=== PATIENT | male | born 1980 | race Caucasian/White ===

== ENCOUNTER 2017-12-06 00:27 | Observation (INO) | payer OTHER ==
[2017-12-06] MEDS ORDERED: Aspirin 81 MG Tab.Chew PO ONE (00:37)
[2017-12-06] MEDS ORDERED: Sodium Chloride 0.9% 1,000 ML IV ONE (00:37)
--- NOTE | 2017-12-06 00:49 | EDM.PDOC ---
ED HPI GENERAL MEDICAL PROBLEM - General Chief Complaint: Respiratory Problem Stated Complaint: SHORTNESS OF BREATH Time Seen by Provider: 12/06/17 00:49 Source of Information: Reports: Patient - History of Present Illness INITIAL COMMENTS - FREE TEXT/NARRATIVE: HISTORY AND PHYSICAL: History of present illness: [] Review of systems: As per history of present illness and below otherwise all systems reviewed and negative. Past medical history: As per history of present illness and as reviewed below otherwise noncontributory. Surgical history: As per history of present illness and as reviewed below otherwise noncontributory. Social history: No reported history of drug or alcohol abuse. Family history: As per history of present illness and as reviewed below otherwise noncontributory. Physical exam: HEENT: Atraumatic, normocephalic, pupils reactive, negative for conjunctival pallor or scleral icterus, mucous membranes moist, throat clear, neck supple, nontender, trachea midline. Lungs: Clear to auscultation, breath sounds equal bilaterally, chest nontender. Heart: S1S2, regular, negative for clicks, rubs, or JVD. Abdomen: Soft, nondistended, nontender. Negative for masses or hepatosplenomegaly. Negative for costovertebral tenderness. Pelvis: Stable nontender. Genitourinary: Deferred. Rectal: Deferred. Extremities: Atraumatic, negative for cords or calf pain. Neurovascular unremarkable. Neuro: Awake, alert, oriented. Cranial nerves II through XII unremarkable. Cerebellum unremarkable. Motor and sensory unremarkable throughout. Exam nonfocal. Diagnostics: [] Therapeutics: [] Impression: [] Definitive disposition and diagnosis as appropriate pending reevaluation and review of above. - Related Data Allergies Allergy/AdvReac Type Severity Reaction Status Date / Time No Known Allergies Allergy Verified 12/06/17 00:45 Home Meds: Home Meds . [No Known Home Meds] 12/06/17 [History] Course - Vital Signs Last Recorded V/S: Last Vital Signs Temp 98.3 F 12/06/17 00:27 Pulse 93 12/06/17 00:27 Resp 24 H 12/06/17 00:27 BP 150/112 H 12/06/17 00:27 Pulse Ox 97 12/06/17 00:27 - Orders/Labs/Meds Orders: Active Orders 24 hr Category Date Time Status EKG Documentation Completion [RC] STAT Care 12/06/17 00:38 Active Chest 1V Frontal [CR] Stat Exams 12/06/17 00:38 Ordered CBC WITH AUTO DIFF [HEME] Stat Lab 12/06/17 00:37 Ordered COMPREHENSIVE METABOLIC PN,CMP [CHEM] Stat Lab 12/06/17 00:38 Ordered INR,PT,PROTHROMBIN TIME [COAG] Stat Lab 12/06/17 00:38 Ordered LIPASE [CHEM] Stat Lab 12/06/17 00:38 Ordered TROPONIN I [CHEM] Stat Lab 12/06/17 00:38 Ordered UA W/MICROSCOPIC [URIN] Stat Lab 12/06/17 00:38 Ordered Nitroglycerin [Nitrostat] Med 12/06/17 00:37 Active 0.4 mg SL Q5M PRN Sodium Chloride 0.9% [Normal Saline] 1,000 ml Med 12/06/17 00:37 Active IV STAT Medication Orders Sodium Chloride (Normal Saline) 1,000 mls @ 999 mls/hr IV STAT ONE Stop: 12/06/17 01:37 Last Admin: 12/06/17 00:48 Dose: 999 mls/hr Nitroglycerin (Nitrostat) 0.4 mg SL Q5M PRN PRN Reason: Chest Pain Meds: Medications Generic Name Dose Route Start Last Admin Trade Name Freq PRN Reason Stop Dose Admin Sodium Chloride 1,000 mls @ 999 mls/hr 12/06/17 00:37 12/06/17 00:48 Normal Saline IV 12/06/17 01:37 999 mls/hr STAT ONE Administration Nitroglycerin 0.4 mg 12/06/17 00:37 Nitrostat SL Q5M PRN Chest Pain Discontinued Medications Generic Name Dose Route Start Last Admin Trade Name Freq PRN Reason Stop Dose Admin Aspirin 324 mg 12/06/17 00:37 12/06/17 00:48 Aspirin PO 12/06/17 00:38 324 mg ONETIME ONE Administration Departure - Discharge Information - My Orders Last 24 Hours: My Active Orders 12/06/17 00:37 CBC WITH AUTO DIFF [HEME] Stat Nitroglycerin [Nitrostat] 0.4 mg SL Q5M PRN Sodium Chloride 0.9% [Normal Saline] 1,000 ml IV STAT 12/06/17 00:38 EKG Documentation Completion [RC] STAT Chest 1V Frontal [CR] Stat COMPREHENSIVE METABOLIC PN,CMP [CHEM] Stat INR,PT,PROTHROMBIN TIME [COAG] Stat LIPASE [CHEM] Stat TROPONIN I [CHEM] Stat UA W/MICROSCOPIC [URIN] Stat - Assessment/Plan Last 24 Hours: My Active Orders 12/06/17 00:37 CBC WITH AUTO DIFF [HEME] Stat Nitroglycerin [Nitrostat] 0.4 mg SL Q5M PRN Sodium Chloride 0.9% [Normal Saline] 1,000 ml IV STAT 12/06/17 00:38 EKG Documentation Completion [RC] STAT Chest 1V Frontal [CR] Stat COMPREHENSIVE METABOLIC PN,CMP [CHEM] Stat INR,PT,PROTHROMBIN TIME [COAG] Stat LIPASE [CHEM] Stat TROPONIN I [CHEM] Stat UA W/MICROSCOPIC [URIN] Stat
[2017-12-06] MEDS: Nitroglycerin 0.4 MG Tab.SL SL PRN ×2 (00:50→00:56)
[2017-12-06 01:41] LABS: CHLORIDE,CL 104 mmol/L (98-107); SODIUM,NA 140 mmol/L (136-148)
[2017-12-06] MEDS ORDERED: Sodium Chloride 0.9% 1,000 ML IV SCH (02:45)
[2017-12-06] MEDS ORDERED: Morphine 4 MG/ML Syringe IVPUSH PRN (05:18)
[2017-12-06] MEDS ORDERED: Enoxaparin 40 MG/0.4 ML Syringe SUBCUT SCH (05:30)
--- NOTE | 2017-12-06 12:32 | PCM.HP ---
H&P History of Present Illness - General Date of Service: 12/06/17 Admit Problem/Dx: Admission Diagnosis/Problem Admission Diagnosis/Problem Chest pain Patient 36 y old man presented to hospital after he suddenly start having SOB and sensation of impending doom, chest discomfort described as tightness in the middle of the chest mild to moderate intensity that lasted for 15-20 minutes and promted him to come to ER . Patient was drinking beer at home previously and was fired from work where he was working for the past 5 yeas as he tested positive for methamphetamines and this caused him a lot of stress. No irradiation of pain Source of Information: Patient - History of Present Illness Onset of Symptoms: Reports: Today Duration of Symptoms: Reports: Hour(s): Location: Reports: Chest - Related Data Allergies/Adverse Reactions: Allergies Allergy/AdvReac Type Severity Reaction Status Date / Time No Known Allergies Allergy Verified 12/06/17 00:45 Home Medications: Home Meds . [No Known Home Meds] 12/06/17 [History] Past Medical History - Past Health History Medical/Surgical History: Denies Medical/Surgical History Psychiatric History: Reports: Addiction - Infectious Disease History Infectious Disease History: Reports: Chicken Pox Social & Family History - Family History Family Medical History: Noncontributory - Tobacco Use Smoking Status *Q: Never Smoker Second Hand Smoke Exposure: No - Caffeine Use Caffeine Use: Reports: Coffee Other Caffeine Use: 2 cups daily - Alcohol Use Days Per Week of Alcohol Use: 7 Number of Drinks Per Day: 1 Total Drinks Per Week: 7 Date of Last Drink: 12/05/17 Time of Last Drink: 20:00 - Recreational Drug Use Recreational Drug Use: Yes Drug Use in Last 12 Months: Yes Recreational Drug Type: Reports: Heroin, Marijuana/Hashish, Methamphetamine Recreational Drug Use Frequency: Weekly H&P Review of Systems - Review of Systems: Review Of Systems: See Below General: Reports: No Symptoms HEENT: Reports: No Symptoms Pulmonary: Reports: Shortness of Breath Cardiovascular: Reports: Chest Pain Gastrointestinal: Reports: No Symptoms Genitourinary: Reports: No Symptoms Musculoskeletal: Reports: No Symptoms Skin: Reports: No Symptoms Psychiatric: Reports: No Symptoms Neurological: Reports: No Symptoms Hematologic/Lymphatic: Reports: No Symptoms Exam - Exam Exam: See Below - Vital Signs Vital Signs: Last Vital Signs Temp 96.3 F 12/06/17 12:00 Pulse 74 12/06/17 12:00 Resp 22 H 12/06/17 12:00 BP 144/82 H 12/06/17 12:00 Pulse Ox 99 12/06/17 12:00 Weight: 135 lb 9.349 oz - Exam General: Alert, Oriented HEENT: Conjunctiva Clear, EACs Clear Neck: Supple, Trachea Midline Lungs: Clear to Auscultation, Normal Respiratory Effort Cardiovascular: Regular Rate, Regular Rhythm, Normal S1, Normal S2 GI/Abdominal Exam: Normal Bowel Sounds, Soft, Non-Tender, No Organomegaly Back Exam: Normal Inspection Extremities: Normal Inspection Skin: Warm, Dry, Intact Neurological: Cranial Nerves Intact Neuro Extensive - Mental Status: Alert, Oriented x3 - Patient Data Lab Results Last 24 hrs: Laboratory Results - last 24 hr 12/06/17 12/06/17 12/06/17 Range/Units 00:38 00:58 00:58 WBC 6.62 (4.0-11.0) K/uL RBC 5.05 (4.50-5.90) M/uL Hgb 15.8 (13.0-17.0) g/dL Hct 43.5 (38.0-50.0) % MCV 86.1 (80.0-98.0) fL MCH 31.3 (27.0-32.0) pg MCHC 36.3 (31.0-37.0) g/dL RDW Std Deviation 36.7 (28.0-62.0) fl RDW Coeff of Leonard 12 (11.0-15.0) % Plt Count 313 (150-400) K/uL MPV 8.50 (7.40-12.00) fL Neut % (Auto) 71.3 (48.0-80.0) % Lymph % (Auto) 20.5 (16.0-40.0) % Green % (Auto) 7.6 (0.0-15.0) % Eos % (Auto) 0.3 (0.0-7.0) % Baso % (Auto) 0.3 (0.0-1.5) % Neut # (Auto) 4.7 (1.4-5.7) K/uL Lymph # (Auto) 1.4 (0.6-2.4) K/uL Green # (Auto) 0.5 (0.0-0.8) K/uL Eos # (Auto) 0.0 (0.0-0.7) K/uL Baso # (Auto) 0.0 (0.0-0.1) K/uL INR 0.99 Sodium (136-148) mmol/L Potassium (3.5-5.1) mmol/L Chloride (98-107) mmol/L Carbon Dioxide (21.0-32.0) mmol/L BUN (7.0-18.0) mg/dL Creatinine (0.8-1.3) mg/dL Est Cr Clr Drug Dosing Estimated GFR (MDRD) ml/min Glucose (74-106) mg/dL Hemoglobin A1c (4.5-6.2) % Calcium (8.5-10.1) mg/dL Total Bilirubin (0.2-1.0) mg/dL AST (15-37) IU/L ALT (14-63) IU/L Alkaline Phosphatase (46-116) U/L Troponin I (0.000-0.056) ng/mL Total Protein (6.4-8.2) g/dL Albumin (3.4-5.0) g/dL Globulin (2.0-3.5) g/dL Albumin/Globulin Ratio (1.3-2.8) Triglycerides (0-200) mg/dL Cholesterol (50-200) mg/dL LDL Cholesterol, Calc (60-180) mg/dL VLDL Cholesterol (5-55) mg/dL HDL Cholesterol (40-60) mg/dL Cholesterol/HDL Ratio (3.3-6.0) Lipase (73-393) U/L Urine Color YELLOW Urine Appearance HAZY Urine pH 8.5 H (5.0-8.0) Ur Specific [place] 1.015 (1.001-1.035) Urine Protein 30 (NEGATIVE) mg/dL Urine Glucose (UA) NEGATIVE (NEGATIVE) mg/dL Urine Ketones NEGATIVE (NEGATIVE) mg/dL Urine Occult Blood NEGATIVE (NEGATIVE) Urine Nitrite NEGATIVE (NEGATIVE) Urine Bilirubin NEGATIVE (NEGATIVE) Urine Urobilinogen 1.0 (<2.0) EU/dL Ur Leukocyte Esterase NEGATIVE (NEGATIVE) Urine RBC 0-2 (0-2/HPF) Urine WBC 0-2 (0-5/HPF) Ur Epithelial Cells RARE (NONE-FEW) Urine Bacteria FEW (NEGATIVE) Urine Opiates Screen (NEGATIVE) Ur Oxycodone Screen (NEGATIVE) Urine Methadone Screen (NEGATIVE) Ur Barbiturates Screen (NEGATIVE) Ur Phencyclidine Scrn (NEGATIVE) Ur Amphetamine Screen (NEGATIVE) U Methamphetamines Scrn (NEGATIVE) U Benzodiazepines Scrn (NEGATIVE) U Cocaine Metab Screen (NEGATIVE) U Marijuana (THC) Screen (NEGATIVE) 12/06/17 12/06/17 12/06/17 Range/Units 00:58 01:00 06:55 WBC (4.0-11.0) K/uL RBC (4.50-5.90) M/uL Hgb (13.0-17.0) g/dL Hct (38.0-50.0) % MCV (80.0-98.0) fL MCH (27.0-32.0) pg MCHC (31.0-37.0) g/dL RDW Std Deviation (28.0-62.0) fl RDW Coeff of Leonard (11.0-15.0) % Plt Count (150-400) K/uL MPV (7.40-12.00) fL Neut % (Auto) (48.0-80.0) % Lymph % (Auto) (16.0-40.0) % Green % (Auto) (0.0-15.0) % Eos % (Auto) (0.0-7.0) % Baso % (Auto) (0.0-1.5) % Neut # (Auto) (1.4-5.7) K/uL Lymph # (Auto) (0.6-2.4) K/uL Green # (Auto) (0.0-0.8) K/uL Eos # (Auto) (0.0-0.7) K/uL Baso # (Auto) (0.0-0.1) K/uL INR Sodium 140 (136-148) mmol/L Potassium 3.9 (3.5-5.1) mmol/L Chloride 104 (98-107) mmol/L Carbon Dioxide 24.5 (21.0-32.0) mmol/L BUN 9 (7.0-18.0) mg/dL Creatinine 0.7 L (0.8-1.3) mg/dL Est Cr Clr Drug Dosing TNP Estimated GFR (MDRD) > 60.0 ml/min Glucose 105 (74-106) mg/dL Hemoglobin A1c (4.5-6.2) % Calcium 8.9 (8.5-10.1) mg/dL Total Bilirubin 0.4 (0.2-1.0) mg/dL AST 26 (15-37) IU/L ALT 26 (14-63) IU/L Alkaline Phosphatase 87 (46-116) U/L Troponin I < 0.050 (0.000-0.056) ng/mL Total Protein 8.0 (6.4-8.2) g/dL Albumin 3.4 (3.4-5.0) g/dL Globulin 4.6 H (2.0-3.5) g/dL Albumin/Globulin Ratio 0.7 L (1.3-2.8) Triglycerides 92 (0-200) mg/dL Cholesterol 154 (50-200) mg/dL LDL Cholesterol, Calc 53 L (60-180) mg/dL VLDL Cholesterol 18 (5-55) mg/dL HDL Cholesterol 83 H (40-60) mg/dL Cholesterol/HDL Ratio 1.9 L (3.3-6.0) Lipase 357 (73-393) U/L Urine Color Urine Appearance Urine pH (5.0-8.0) Ur Specific [place] (1.001-1.035) Urine Protein (NEGATIVE) mg/dL Urine Glucose (UA) (NEGATIVE) mg/dL Urine Ketones (NEGATIVE) mg/dL Urine Occult Blood (NEGATIVE) Urine Nitrite (NEGATIVE) Urine Bilirubin (NEGATIVE) Urine Urobilinogen (<2.0) EU/dL Ur Leukocyte Esterase (NEGATIVE) Urine RBC (0-2/HPF) Urine WBC (0-5/HPF) Ur Epithelial Cells (NONE-FEW) Urine Bacteria (NEGATIVE) Urine Opiates Screen NEGATIVE (NEGATIVE) Ur Oxycodone Screen NEGATIVE (NEGATIVE) Urine Methadone Screen NEGATIVE (NEGATIVE) Ur Barbiturates Screen NEGATIVE (NEGATIVE) Ur Phencyclidine Scrn NEGATIVE (NEGATIVE) Ur Amphetamine Screen NEGATIVE (NEGATIVE) U Methamphetamines Scrn NEGATIVE (NEGATIVE) U Benzodiazepines Scrn NEGATIVE (NEGATIVE) U Cocaine Metab Screen NEGATIVE (NEGATIVE) U Marijuana (THC) Screen NEGATIVE (NEGATIVE) 12/06/17 12/06/17 Range/Units 06:55 06:55 WBC (4.0-11.0) K/uL RBC (4.50-5.90) M/uL Hgb (13.0-17.0) g/dL Hct (38.0-50.0) % MCV (80.0-98.0) fL MCH (27.0-32.0) pg MCHC (31.0-37.0) g/dL RDW Std Deviation (28.0-62.0) fl RDW Coeff of Leonard (11.0-15.0) % Plt Count (150-400) K/uL MPV (7.40-12.00) fL Neut % (Auto) (48.0-80.0) % Lymph % (Auto) (16.0-40.0) % Green % (Auto) (0.0-15.0) % Eos % (Auto) (0.0-7.0) % Baso % (Auto) (0.0-1.5) % Neut # (Auto) (1.4-5.7) K/uL Lymph # (Auto) (0.6-2.4) K/uL Green # (Auto) (0.0-0.8) K/uL Eos # (Auto) (0.0-0.7) K/uL Baso # (Auto) (0.0-0.1) K/uL INR Sodium (136-148) mmol/L Potassium (3.5-5.1) mmol/L Chloride (98-107) mmol/L Carbon Dioxide (21.0-32.0) mmol/L BUN (7.0-18.0) mg/dL Creatinine (0.8-1.3) mg/dL Est Cr Clr Drug Dosing Estimated GFR (MDRD) ml/min Glucose (74-106) mg/dL Hemoglobin A1c 5.8 (4.5-6.2) % Calcium (8.5-10.1) mg/dL Total Bilirubin (0.2-1.0) mg/dL AST (15-37) IU/L ALT (14-63) IU/L Alkaline Phosphatase (46-116) U/L Troponin I < 0.050 (0.000-0.056) ng/mL Total Protein (6.4-8.2) g/dL Albumin (3.4-5.0) g/dL Globulin (2.0-3.5) g/dL Albumin/Globulin Ratio (1.3-2.8) Triglycerides (0-200) mg/dL Cholesterol (50-200) mg/dL LDL Cholesterol, Calc (60-180) mg/dL VLDL Cholesterol (5-55) mg/dL HDL Cholesterol (40-60) mg/dL Cholesterol/HDL Ratio (3.3-6.0) Lipase (73-393) U/L Urine Color Urine Appearance Urine pH (5.0-8.0) Ur Specific [place] (1.001-1.035) Urine Protein (NEGATIVE) mg/dL Urine Glucose (UA) (NEGATIVE) mg/dL Urine Ketones (NEGATIVE) mg/dL Urine Occult Blood (NEGATIVE) Urine Nitrite (NEGATIVE) Urine Bilirubin (NEGATIVE) Urine Urobilinogen (<2.0) EU/dL Ur Leukocyte Esterase (NEGATIVE) Urine RBC (0-2/HPF) Urine WBC (0-5/HPF) Ur Epithelial Cells (NONE-FEW) Urine Bacteria (NEGATIVE) Urine Opiates Screen (NEGATIVE) Ur Oxycodone Screen (NEGATIVE) Urine Methadone Screen (NEGATIVE) Ur Barbiturates Screen (NEGATIVE) Ur Phencyclidine Scrn (NEGATIVE) Ur Amphetamine Screen (NEGATIVE) U Methamphetamines Scrn (NEGATIVE) U Benzodiazepines Scrn (NEGATIVE) U Cocaine Metab Screen (NEGATIVE) U Marijuana (THC) Screen (NEGATIVE) Result Diagrams: 12/06/17 00:58 12/06/17 00:58 EKG INTERPRETATION EKG Date: 12/06/17 Rhythm: NSR [place]: Normal P-Wave: Present QRS: Normal ST-T: Normal QT: Normal - Problem List (1) Panic attack as reaction to stress SNOMED Code(s): 83430201 ICD Code: F41.0 - PANIC DISORDER [EPISODIC PAROXYSMAL ANXIETY]; F43.0 - ACUTE STRESS REACTION Status: Acute (2) Chest pain SNOMED Code(s): 65352967 ICD Code: R07.9 - CHEST PAIN, UNSPECIFIED Status: Acute Qualifiers: Chest pain type: other chest pain Qualified Code(s): R07.89 - Other chest pain; R07.8 - Other chest pain Problem List Initiated/Reviewed/Updated: Yes Orders Last 24hrs: Active Orders 24 hr Category Date Time Status Admission Status [Patient Status] [ADT] Stat ADT 12/06/17 02:14 Active Cardiac Monitoring [RC] CONTINUOUS Care 12/06/17 05:19 Inactive Oxygen Therapy [RC] PRN Care 12/06/17 05:18 Active Ready for Discharge [RC] PER UNIT ROUTINE Care 12/06/17 11:57 Active Telemetry Monitoring [Cardiac Monitoring] [RC] Q8H Care 12/06/17 05:30 Active Up ad Shilpa [RC] ASDIRECTED Care 12/06/17 05:18 Active VTE/DVT Education [RC] PER UNIT ROUTINE Care 12/06/17 05:18 Active Vital Signs [RC] Q4H Care 12/06/17 05:18 Active 2 Gram Sodium Diet [DIET] Diet 12/06/17 Breakfast Active Chest 1V Frontal [CR] Stat Exams 12/06/17 00:38 Taken DRUG SCREEN, URINE [URCHEM] Stat Lab 12/06/17 01:00 Ordered TROPONIN I [CHEM] Q6H Lab 12/06/17 13:00 Ordered UA W/MICROSCOPIC [URIN] Stat Lab 12/06/17 00:38 Ordered Enoxaparin [Lovenox] Med 12/06/17 05:30 Active 40 mg SUBCUT Q24H Morphine Med 12/06/17 05:18 Active 2 mg IVPUSH Q2H PRN Nitroglycerin [Nitrostat] Med 12/06/17 00:37 Active 0.4 mg SL Q5M PRN Resuscitation Status Routine Resus Stat 12/06/17 05:18 Ordered Medication Orders Enoxaparin Sodium (Lovenox) 40 mg SUBCUT Q24H [facility] Last Admin: 12/06/17 06:23 Dose: 40 mg Morphine Sulfate (Morphine) 2 mg IVPUSH Q2H PRN PRN Reason: Pain (severe 7-10) Stop: 12/07/17 05:19 Nitroglycerin (Nitrostat) 0.4 mg SL Q5M PRN PRN Reason: Chest Pain Last Admin: 12/06/17 00:56 Dose: 0.4 mg Admin: 12/06/17 00:50 Dose: 0.4 mg Assessment and plan; Panic attack CP r/o acs drug abuse alcohol abuse plan: will admit patient to telemetry , patient received in ER aspirin , will follow 3 sets of cardiac enzimes , lipid profile , hemoglobin A1 c Patient was told to avoind stress , stop using drugs and stop drinking alcohol. Discharge summary During the hospital stay patient did not have chest pain or SOB , cardiac enzymes 3 sets were negative , patient lipid profile was normal. He was discharged home in to follow up with the PCP , patient was returning to [place] from where he was.
--- NOTE | 2017-12-07 13:41 | CR ---
EXAM DATE: 12/06/17 PATIENT'S AGE: 36 Patient: FAMILIA BERNAL Facility: [place], [place] Site . Site : [id number] Study: XRay Chest [id number]/20/2018 1:04:42 AM Ordering Physician: Jaydon Jaimes Final Report: INDICATION: Shortness of breath, chest pain TECHNIQUE: Chest radiograph 1 view COMPARISON: None FINDINGS: Mediastinum: The heart silhouette is normal in size and morphology. The mediastinum is normal in appearance. Lungs: Both lungs are unremarkable in appearance. No sign of pleural effusion seen. No pneumothorax is identified. Bones and soft tissue: Unremarkable for age. IMPRESSION: 1. No acute cardiopulmonary disease is seen. Dictated by: Tomasz Willett MD @ 12/06/2017 01:21:37 (Electronic Signature) Report Signed by Proxy. [facility] DIVISIONShannan
== END 2017-12-06 14:20 | disposition home or self-care (01) ==
LOC: MW.ED 00:27 → MW.MS 02:14
PROVIDERS: ADMIT Internal Medicine; ATTEND Internal Medicine
DX: R07.89 Other chest pain (principal); F41.0 Panic disorder [episodic paroxysmal anxiety]; F10.10 Alcohol abuse, uncomplicated
CPT/HCPCS: 36415; 71045; 80053; 80061; 80305; 81001; 83036; 83690; 84484; 85025; 85610; 93005; 96360; 99285; A9270; J1650; J7040; 96372; G0378